=== PATIENT | male | born 1960 ===

== ENCOUNTER → 2017-09-04 | Outpatient (REF) ==
[2017-09-04 19:08] LABS: PSA-TOTAL 4.17 ng/mL (0-4)
[2017-09-04 19:12] LABS: THYROID STIMULATING HORMONE 1.56 uIU/mL (0.465-4.680)
== END ==
LOC: ZLAB.WCH 18:01
PROVIDERS: Internal Medicine
DX: Z01.89 Encounter for other specified special examinations (principal)
CPT/HCPCS: G0103